=== PATIENT | female | born 1975 | race Caucasian/White ===

== ENCOUNTER 2016-06-17 18:22 | Emergency (ER) | payer MEDICAID | END 2016-06-17 21:13 | disposition left against medical advice (07) | LOC: D.ER 18:22 | DX: M54.2 Cervicalgia (principal) ==

== ENCOUNTER 2016-06-19 14:00 | Emergency (ER) | payer MEDICAID | END 2016-06-19 17:03 | disposition home or self-care (01) | LOC: D.ER 14:00 | DX: S69.92XA Unspecified injury of left wrist, hand and finger(s), initial encounter (principal); Y04.2XXA Assault by strike against or bumped into by another person, initial encounter; Y93.89 Activity, other specified; Y92.019 Unspecified place in single-family (private) house as the place of occurrence of the external cause; F17.200 Nicotine dependence, unspecified, uncomplicated ==

== ENCOUNTER 2018-09-04 03:28 | Emergency (ER) | payer SELFPAY ==
[~2018-09-04] VITALS: Ht 160 cm; Wt 56.7 kg
[2018-09-04 03:34] VITALS: Ht 160 cm; Wt 56.7 kg
[2018-09-04] MEDS ORDERED: IBUPROFEN800 MG PO (06:40)
[2018-09-04] MEDS ORDERED: CYCLOBENZAPRINE10 MG PO (06:40)
[2018-09-04] MEDS ORDERED: ACETAMINOPHEN500 M1 PO (06:40)
[2018-09-04 06:48] VITALS: BP 119/69
== END 2018-09-04 06:48 | disposition home or self-care (01) ==
LOC: D.ER 03:28
DX: S16.1XXA Strain of muscle, fascia and tendon at neck level, initial encounter (principal); Y04.2XXA Assault by strike against or bumped into by another person, initial encounter; Y93.89 Activity, other specified; Y92.89 Other specified places as the place of occurrence of the external cause; S00.93XA Contusion of unspecified part of head, initial encounter; M79.18 Myalgia, other site